=== PATIENT | male | born 1965 | race Caucasian/White ===

== ENCOUNTER 2017-06-03 19:44 | Emergency (ER) | payer MEDICARE, MEDICAID ==
[~2017-06-03] VITALS: Ht 172.7 cm; Wt 90.9 kg
[~2017-06-03 19:44] MED LIST: ACET325T26 PO; ALEN35TA6 PO; AMLO5TAB2 PO; CALC-109 PO; CHLO4TAB22 PO; CHOL400C11 PO; DIVA500T17 PO; DIVA500T2 PO; ESCI20TA PO; FELB600T2 PO; GUAI118L49 PO; LACO200T PO; LORA1TAB PO; OMEP-110 PO; RISP1TAB3 PO; RISP2TAB3 PO; RUFI400T PO; VIT1CAPS16 PO
[2017-06-03] MEDS ORDERED: LIDOCAINE 1%-EPI 1:100K, 20ML SQ ONE (20:30)
[2017-06-03] MEDS ORDERED: LIDOCAINE-MPF 2% ,5ML ONE (20:36)
[2017-06-03] MEDS ORDERED: LIDOCAINE-MPF 1%, 5ML ONE (20:42)
[2017-06-03 20:55] LABS: BASOPHILS % (AUTO) 0 % (0-1); EOSINOPHILS # (AUTO) 0.04 x10^3/uL (0-0.4); EOSINOPHILS % (AUTO) 1 % (1-7); LYMPHOCYTES % (AUTO) 34 % (22-44); MD NO; MEAN CORPUSCULAR HEMOGLOBIN 31.7 pg (27.5-34.5); MEAN CORPUSCULAR VOLUME 93.1 fL (81-97); MONOCYTES # (AUTO) 0.61 x10^3/uL (0.2-0.8); MONOCYTES % (AUTO) 17 % (2-9); NEUTROPHILS # (AUTO) 1.72 x10^3/uL (1.8-6.8); NEUTROPHILS % (AUTO) 48 % (42-75); PLATELET COUNT 230 x10^3/uL (130-400); RED CELL DISTRIBUTION WIDTH 13.8 % (9.4-14.8)
[2017-06-03 21:02] LABS: ALBUMIN 3.6 g/dL (3.4-5.0); ANION GAP 5 mmol/L (5-15); CALCIUM 8.6 mg/dL (8.5-10.1); CHLORIDE 96 mmol/L (98-107); CREATININE 0.53 mg/dL (0.7-1.3)
[2017-06-03 21:05] LABS: ALANINE AMINOTRANSFERASE 12 U/L (12-78); ALKALINE PHOSPHATASE 77 U/L (45-117); BILIRUBIN,TOTAL 0.3 mg/dL (0.2-1.0); TOTAL PROTEIN 7.3 g/dL (6.4-8.2)
[2017-06-03 23:04] VITALS: BP 129/77
== END 2017-06-03 23:08 | disposition home or self-care (01) ==
LOC: ED 23:02
DX: S01.81XA Laceration without foreign body of other part of head, initial encounter (principal); X58.XXXA Exposure to other specified factors, initial encounter; Y93.89 Activity, other specified; Y92.89 Other specified places as the place of occurrence of the external cause; Y99.9 Unspecified external cause status; G40.901 Epilepsy, unspecified, not intractable, with status epilepticus; K21.9 Gastro-esophageal reflux disease without esophagitis
CPT/HCPCS: 12011; 36415; 70450; 72125; 80053; 85025; 93005; 99285

== ENCOUNTER 2017-12-20 18:52 | Emergency (ER) | payer MEDICARE, MEDICAID ==
[~2017-12-20] VITALS: Ht 172.7 cm; Wt 90.9 kg
[~2017-12-20 18:52] MED LIST changes: -AMLO5TAB2 PO; +AMLO5TAB7 PO
[2017-12-20 19:33] LABS: BASOPHILS # (AUTO) 0.02 x10^3/uL (0-0.1); BASOPHILS % (AUTO) 0 % (0-1); EOSINOPHILS # (AUTO) 0.07 x10^3/uL (0-0.4); EOSINOPHILS % (AUTO) 2 % (1-7); LYMPHOCYTES % (AUTO) 30 % (22-44); MD NO; MEAN CORPUSCULAR HEMOGLOBIN 32.3 pg (27.5-34.5); MEAN CORPUSCULAR HGB CONC 34.3 g/dL (33.2-36.2); MEAN PLATELET VOLUME 7.9 fL (7.4-10.4); MONOCYTES # (AUTO) 0.65 x10^3/uL (0.2-0.8); MONOCYTES % (AUTO) 14 % (2-9); NEUTROPHILS # (AUTO) 2.57 x10^3/uL (1.8-6.8); NEUTROPHILS % (AUTO) 55 % (42-75); PLATELET COUNT 226 x10^3/uL (130-400); RED BLOOD COUNT 4.18 x10^6/uL (4.38-5.82)
[2017-12-20 19:44] LABS: ALBUMIN 3.5 g/dL (3.4-5.0); ANION GAP 6 mmol/L (5-15); CALCIUM 9.2 mg/dL (8.5-10.1); CHLORIDE 89 mmol/L (98-107)
[2017-12-20 19:59] LABS: ALANINE AMINOTRANSFERASE 13 U/L (12-78); CREATININE 0.48 mg/dL (0.7-1.3)
[2017-12-20 20:01] LABS: ALKALINE PHOSPHATASE 84 U/L (45-117); BILIRUBIN,TOTAL 0.2 mg/dL (0.2-1.0); TOTAL PROTEIN 7.2 g/dL (6.4-8.2)
[2017-12-20 21:13] VITALS: BP 111/76
== END 2017-12-20 21:49 | disposition home or self-care (01) ==
LOC: ED 21:35
DX: S06.339A Contusion and laceration of cerebrum, unspecified, with loss of consciousness of unspecified duration, initial encounter (principal); I10 Essential (primary) hypertension; F25.9 Schizoaffective disorder, unspecified; E78.5 Hyperlipidemia, unspecified; G40.909 Epilepsy, unspecified, not intractable, without status epilepticus; C73 Malignant neoplasm of thyroid gland; W01.0XXA Fall on same level from slipping, tripping and stumbling without subsequent striking against object, initial encounter; Y93.89 Activity, other specified; Y99.8 Other external cause status; Y92.009 Unspecified place in unspecified non-institutional (private) residence as the place of occurrence of the external cause
CPT/HCPCS: 36415; 70450; 80053; 80164; 85025; 99285

== ENCOUNTER 2018-05-19 20:03 | Emergency (ER) | payer MEDICARE, MEDICAID ==
[~2018-05-19] VITALS: Ht 172.7 cm; Wt 88.5 kg
[~2018-05-19 20:03] MED LIST changes: +AMLO-150 PO; -AMLO5TAB7 PO
[2018-05-19] MEDS ORDERED: LIDOCAINE 1%, 10ML INFIL ONE (20:30)
[2018-05-19 20:32] LABS: BASOPHILS # (AUTO) 0.03 x10^3/uL (0-0.1); BASOPHILS % (AUTO) 1 % (0-1); EOSINOPHILS # (AUTO) 0.04 x10^3/uL (0-0.4); EOSINOPHILS % (AUTO) 1 % (1-7); LYMPHOCYTES # (AUTO) 1.02 x10^3/uL (1-3.4); LYMPHOCYTES % (AUTO) 33 % (22-44); MD NO; MEAN CORPUSCULAR HEMOGLOBIN 31.7 pg (27.5-34.5); MEAN CORPUSCULAR HGB CONC 33.9 g/dL (33.2-36.2); MEAN CORPUSCULAR VOLUME 93.6 fL (81-97); MEAN PLATELET VOLUME 7.8 fL (7.4-10.4); MONOCYTES # (AUTO) 0.55 x10^3/uL (0.2-0.8); MONOCYTES % (AUTO) 18 % (2-9); NEUTROPHILS # (AUTO) 1.42 x10^3/uL (1.8-6.8); NEUTROPHILS % (AUTO) 46 % (42-75); PLATELET COUNT 215 x10^3/uL (130-400); RED BLOOD COUNT 4.21 x10^6/uL (4.38-5.82); RED CELL DISTRIBUTION WIDTH 14.5 % (9.4-14.8)
[2018-05-19 20:44] LABS: ALBUMIN 3.6 g/dL (3.4-5.0); ANION GAP 4 mmol/L (5-15); CALCIUM 8.6 mg/dL (8.5-10.1); CHLORIDE 96 mmol/L (98-107)
[2018-05-19 20:47] LABS: ALANINE AMINOTRANSFERASE 12 U/L (12-78); ALKALINE PHOSPHATASE 89 U/L (45-117); BILIRUBIN,TOTAL 0.2 mg/dL (0.2-1.0); TOTAL PROTEIN 7.5 g/dL (6.4-8.2)
[2018-05-19] MEDS ORDERED: LIDOCAINE-MPF 1%, 5ML ONE (20:54)
[2018-05-19 21:30] VITALS: BP 105/68
[2018-05-19] MEDS ORDERED: BACITRACIN ZINC OINT 500U/GM, 0.9 GM ONE (21:57)
== END 2018-05-19 22:36 | disposition home or self-care (01) ==
LOC: ED 21:12
DX: S01.81XA Laceration without foreign body of other part of head, initial encounter (principal); G40.909 Epilepsy, unspecified, not intractable, without status epilepticus; I10 Essential (primary) hypertension; X58.XXXA Exposure to other specified factors, initial encounter; Y93.89 Activity, other specified; Y92.89 Other specified places as the place of occurrence of the external cause; Y99.8 Other external cause status
CPT/HCPCS: 12051; 36415; 70450; 80053; 80164; 85025; 93005; 99284

== ENCOUNTER 2018-06-09 06:43 | Emergency (ER) | payer MEDICARE, MEDICAID ==
[~2018-06-09] VITALS: Ht 177.8 cm; Wt 86.3 kg
[2018-06-09 06:47] VITALS: BP 109/68
--- NOTE | 2018-06-09 07:14 | NUR ---
ONE STITCH REMOVED FROM RIGHT OUTER EYEBROW W/O DIFFICULTY. ROBYN HAN ASSESSED AND NO ADDITIONAL SUTURES IDENTIFIED. PT TOLLERATED WELL.
--- NOTE | 2018-06-09 07:16 | NUR ---
Patient/Caregiver given discharge instructions and they have confirmed that they understand the instructions. Patient ambulatory with steady gait.
== END 2018-06-09 07:16 | disposition home or self-care (01) ==
LOC: ED 07:13
DX: S01.81XD Laceration without foreign body of other part of head, subsequent encounter (principal); I10 Essential (primary) hypertension; G40.909 Epilepsy, unspecified, not intractable, without status epilepticus; X58.XXXD Exposure to other specified factors, subsequent encounter
CPT/HCPCS: 99281

== ENCOUNTER 2019-01-02 19:52 | Emergency (ER) | payer MEDICARE, MEDICAID ==
[~2019-01-02] VITALS: Ht 177.8 cm; Wt 75.0 kg
[~2019-01-02 19:52] MED LIST changes: +AMLO10TA8 PO; +LEVO200T5 PO; +SERT100T32 PO
[2019-01-02] MEDS ORDERED: LIDOCAINE-MPF 1%, 5ML ONE (20:45)
[2019-01-02] MEDS ORDERED: LIDOCAINE-MPF 1%, 5ML INFIL ONE (21:00)
[2019-01-02] MEDS ORDERED: NEOSPORIN OINT. PKT 1 PACKET ONE (21:06)
--- NOTE | 2019-01-02 21:24 | NUR ---
BACK FROM CT.
[2019-01-02 21:31] VITALS: BP 120/71
--- NOTE | 2019-01-02 21:31 | NUR ---
WOUND CARE AND HELDER TO Zachery FOREHEAD LAC.
== END 2019-01-02 22:02 | disposition home or self-care (01) ==
LOC: ED 21:45
DX: S01.111A Laceration without foreign body of right eyelid and periocular area, initial encounter (principal); S09.90XA Unspecified injury of head, initial encounter; I10 Essential (primary) hypertension; E78.5 Hyperlipidemia, unspecified; F20.9 Schizophrenia, unspecified; G40.909 Epilepsy, unspecified, not intractable, without status epilepticus; Z85.850 Personal history of malignant neoplasm of thyroid; W18.30XA Fall on same level, unspecified, initial encounter; Y93.89 Activity, other specified; Y92.009 Unspecified place in unspecified non-institutional (private) residence as the place of occurrence of the external cause; Y99.8 Other external cause status
CPT/HCPCS: 12051; 70450; 99284

== ENCOUNTER 2019-03-24 09:32 | Outpatient (CLI) | payer MEDICARE, MEDICAID ==
[~2019-03-24 09:32] MED LIST changes: +ALEN35TA13 PO; -ALEN35TA6 PO
[2019-03-24] MEDS ORDERED: DIVA250T14 PO (10:26)
[2019-03-24] MEDS ORDERED: ACET325T26 PO (10:26)
== END 2019-03-24 23:59 | disposition home or self-care (01) ==
LOC: STAR 09:32
PROVIDERS: ATTEND Internal Medicine Gastroenterology
DX: Z02.9 Encounter for administrative examinations, unspecified (principal)

== ENCOUNTER 2019-03-31 06:56 | Day surgery (SDC) | payer MEDICARE, MEDICAID ==
[~2019-03-31] VITALS: Ht 177.8 cm; Wt 84.0 kg
[~2019-03-31 06:56] MED LIST changes: +DIVA250T14 PO
[2019-03-31] MEDS ORDERED: LACTATED RINGERS 1,000 ML IV SCH (07:10)
[2019-03-31 07:28] VITALS: BP 124/78
[2019-03-31] MEDS ORDERED: OXYcodone 5 MG/5 ML ORAL.SOL UDC PO PRN (08:00)
[2019-03-31] MEDS ORDERED: FENTANYL PF 100 MCG/2ML IV PRN (08:00)
[2019-03-31] MEDS ORDERED: PROMETHAZINE 25 MG/ML, 1ML IV PRN (08:00)
[2019-03-31] MEDS ORDERED: HYDROmorphone 2 MG/ML, 1ML IVPush PRN (08:00)
[2019-03-31] MEDS ORDERED: ONDANSETRON 2MG/ML, 2ML IV PRN (08:00)
[2019-03-31] MEDS ORDERED: FENTANYL PF 100 MCG/2ML ONE (09:02)
[2019-03-31] MEDS ORDERED: PROPOFOL 10 MG/ML, 20ML ONE (09:02)
[2019-03-31] MEDS ORDERED: MIDAZOLAM 1 MG/ML, 2ML ONE (09:02)
== END 2019-03-31 11:45 | disposition home or self-care (01) ==
LOC: OUT 06:56
PROVIDERS: ATTEND Internal Medicine Gastroenterology
DX: Z12.11 Encounter for screening for malignant neoplasm of colon (principal); K63.5 Polyp of colon; F20.9 Schizophrenia, unspecified; I10 Essential (primary) hypertension; G40.909 Epilepsy, unspecified, not intractable, without status epilepticus; Z79.899 Other long term (current) drug therapy; Z86.010 Personal history of colon polyps
CPT/HCPCS: 45385; 88305; J2250; J2704; J3010; J7120